=== PATIENT | female | born 1980 | race Caucasian/White ===

== ENCOUNTER 2020-03-27 05:25 | Inpatient (IN) | payer OTHER ==
[2020-03-22 13:07] LABS: BILIRUBIN,URINE NEGATIVE (NEGATIVE); CLARITY,URINE HAZY (CLEAR); COLOR,URINE YELLOW (YELLOW); KETONES,URINE NEGATIVE (NEGATIVE); LEUKOCYTE ESTERASE ,URINE TRACE (NEGATIVE); NITRITE,URINE NEGATIVE (NEGATIVE); PROTEIN,URINE DIPSTICK NEGATIVE (NEGATIVE); URINE UROBILINOGEN 0.2 mg/dL (0.2 - 1)
[2020-03-22 13:11] LABS: BASOPHILS % 0.5 % (0.0-1.0); EOSINOPHILS # (AUTO) 0.3 (0.0-0.4); EOSINOPHILS % 3.8 % (0.0-6.0); HEMATOCRIT 37.7 % (34.2-44.1); HEMOGLOBIN 11.6 g/dL (12.0-16.0); LYMPHOCYTES # (AUTO) 2.8 (1.0-3.2); LYMPHOCYTES % 32.5 % (18.0-39.1); MEAN CORPUSCULAR HEMOGLOBIN 25.8 pg (28-32); MEAN CORPUSCULAR HGB CONC 30.8 g/dL (31-35); MEAN CORPUSCULAR VOLUME 83.8 fL (81-99); MONOCYTES # (AUTO) 0.5 (0.2-0.8); MONOCYTES % 6.2 % (4.4-11.3); NEUTROPHILS # (AUTO) 4.8 (2.1-6.9); NEUTROPHILS % 56.3 % (38.7-80.0); PLATELET COUNT 330 x10e3/uL (140-360); RED CELL DISTRIBUTION WIDTH 14.3 % (11.7-14.4)
[2020-03-22 13:36] LABS: HIV 1&2 AB SCREEN NON-REACTIVE (NONREACTIVE)
--- NOTE | 2020-03-22 13:44 | Diagnostic Imaging Report ---
EXAMINATION: CHEST 2 VIEWS INDICATION: Pre-operative COMPARISON: None FINDINGS: LINES/TUBES:None LUNGS:The lungs are well-inflated. No focal consolidation or pulmonary edema. PLEURA:No pleural effusion or pneumothorax. MEDIASTINUM:The cardiomediastinal silhouette appears normal in size and shape. BONES/SOFT TISSUES:No acute osseous injury. ABDOMEN:No free air under the diaphragm. IMPRESSION: No focal pneumonia or pulmonary edema. Signed by: Nina Juárez MD on 03/22/2020 1:41 PM
[~2020-03-27] VITALS: Ht 165.1 cm; Wt 95.3 kg
[~2020-03-27 05:25] MED LIST: ADDERALL 30 MG30 MG PO; VALIUM10 MG PO
[2020-03-27] MEDS ORDERED: COLACE100 MG PO (06:14)
[2020-03-27] MEDS ORDERED: CEFOXITIN 1GM/0.9% NS 50ML 100 ML IV ONE (06:25)
[2020-03-27] MEDS ORDERED: BUPIVACAINE HCL 0.5% INJ 30 ML VIAL INJ ONE (08:32)
[2020-03-27] MEDS ORDERED: BUPIVACAINE LIPOSOME/PF 266 MG/20 ML IJ ONE (08:32)
[2020-03-27] MEDS ORDERED: HYDROMORPHONE 2MG/ML 2 MG/ML ML ONE (09:03)
[2020-03-27] MEDS ORDERED: ONDANSETRON HCL INJ 2MG/ML 2ML 2 MG/ML VIAL IV PRN (10:30)
[2020-03-27] MEDS ORDERED: KETOROLAC TROMETHAMINE 30 MG/ML VIAL IV PRN (10:30)
[2020-03-27] MEDS ORDERED: NALOXONE HCL INJ 0.4 MG/ML AMP IV PRN (10:30)
[2020-03-27] MEDS: HYDROMORPHONE 0.2MG/ML-SOD CHL 30ML PCA SYRINGE IV PRN (10:40)
[2020-03-27] MEDS ORDERED: DIPHENHYDRAMINE HCL INJ 50 MG/ML VIAL ONE (10:54)
[2020-03-27 11:30] VITALS: BP 98/78
[2020-03-27 13:09] VITALS: BP 107/61
[2020-03-27] MEDS ORDERED: FENTANYL CITRATE/PF 100MCG/2 ML INJ ONE (14:56)
[2020-03-27] MEDS ORDERED: MIDAZOLAM HCL 2 MG/2 ML VIAL ONE (14:56)
--- NOTE | 2020-03-27 16:09 | Operative Report ---
DATE OF PROCEDURE: 03/27/2020 SURGEON: Marquez Mcnamara MD PREOPERATIVE DIAGNOSES: A 39-year-old female, 7, para 4 suffering from: 1. Chronic pelvic pain. 2. Long painful heavy periods leading to anemia. 3. Deep dyspareunia. POSTOPERATIVE DIAGNOSES: A 39-year-old female, 7, para 4 suffering from: 1. Chronic pelvic pain. 2. Long painful heavy periods leading to anemia. 3. Deep dyspareunia. PROCEDURES DONE: 1. EUA. 2. Total abdominal hysterectomy. 3. Bilateral salpingectomy. RECRUITING INTERN: Philippe Chanel MD. ANESTHESIA: General. FINDINGS: At the time of surgery and EUA, cervix looked normal and uterus enlarged, boggy. No adnexal masses felt. On laparotomy, uterus was enlarged about 12-week size and both ovaries looked fine. Both tubes looked unhealthy and claimed several cysts of Morgagni. No pelvic adhesions. Removed the uterus along with the cervix and both fallopian tubes. ESTIMATED BLOOD LOSS: Around 200 mL. URINE: Clear in the Maldonado bag. COMPLICATIONS: No complications. PROCEDURE IN DETAIL: The patient was brought to the operating room, put in the supine position, and general anesthesia was given without any problems. After adequate anesthesia, the patient was examined under anesthesia. Then, prepped and draped in the routine fashion and proceeded with the surgery. Maldonado catheter was in the bladder draining clear urine. Then, made a low-transverse Pfannenstiel skin incision and taken down to the fascia. Fascia opened in a transverse fashion. Recti muscle longitudinally, identified the parietal peritoneum, opened and entered the abdominal cavity without any problems. Then, O'Guzman-O'Kuhn retractor placed in the incision for better exposure and placed the upper blade and the lower blade after packing the bowels up with wet laps. Then, held the fundus of the uterus with the [place] clamp. Both ovaries looked fine. Both tubes looked inflamed and several cysts of Morgagni, and she has a chronic pelvic pain that is why decided to remove both the tubes and keep the ovaries, and remove the uterus. There was a longitudinal ridge from the bladder to the front of the uterus making the bladder dissection difficult. The round ligaments were more atrophic. They identified and clamped close to the uterus and cauterized and cut with the LigaSure. This was done on both sides. Then, the fallopian tubes, the mesosalpinx clamped with the LigaSure, cauterized and cut on both sides. Then, the stump of the tube and the round ligament and the part of the broad ligament clamped at the fundus with the LigaSure close to the uterus and cauterized and cut on both sides. The hemostasis was satisfactory. On either side, applied the Sears clamps to stop the bleeding from the uterus and also to hold the uterus and remove the [place] clamp. Now, the bladder flap, the ridge was cut in the midline and extended on either side up to the stumps of the round ligaments and dissected some more, and pushed down the bladder. The urine was clear. The bladder flap was little vascular, but the hemostasis achieved with the Bovie. Then, after making sure the bladder was down all the way, the part of the broad ligament on either side of the uterus clamped with the LigaSure, cauterized and cut towards the uterus, and then dissected the posterior peritoneum and pushed down and isolated the uterine vessels on either side, clamped them with the LigaSure, cauterized double and then cut. This was done on both sides. The left side, there was a little bit more bleeding while doing the uterine vessels that was clamped with the Joslyn clamp and secured the bleeding and suture ligated using 1-0 Vicryl. The uterine vessels were very large and varicose. Then, cardinal ligaments on either side clamped close to the uterus after making sure the bladder was dissected down. Then, the stumps cut and suture ligated using 1-0 Vicryl, suture tight snug and cut short. Then, after making sure the bladder was down and ureters were far away, the uterine sacral ligaments on either side clamped with curved Joslyn clamp, cut towards the uterus and suture ligated using 1-0 Vicryl, suture tight snug and held along with the hemostat and we were all the way to the angle of the vagina, right angle clamps applied on either side and cut towards the uterus and then, the anterior wall of the vagina, posterior wall of the vagina cut and removed the uterus along with the fallopian tubes and sent for the pathology. The vaginal cuff held with the straight Ana clamps in the midline and then placed the angle stitches with 1 Vicryl and sutured with the transfixation suture, suture tight snug, and held along with the hemostat. Then, the vaginal vault closed with [id number] sutures using 1 Vicryl. At the end of the procedure, we irrigated the pelvis and there was no active bleeding from anywhere. After anchoring the stumps of the uterosacral ligaments into the vaginal vault, all the sutures cut shot and then injected the local anesthetic into the vaginal vault for the postop pain relief, 5 mL. Then again checked for the hemostasis, hemostasis was satisfactory. The Maldonado catheter in the bladder draining clear urine and the ureters looked normal. Then, O'Guzman-O'Kuhn retractor removed and closed the abdominal wall in layers. Parietal peritoneum closed with 2-0 Vicryl with continuous stitches. Fascia closed with 1 Vicryl using 2 sutures starting at the corners and ending in the midline. The subcutaneous tissue approximated with the 2-0 Vicryl with continuous stitches and skin approximated with the subcuticular stitches using 4-0 Vicryl. The remaining 15 mL of the local injected into the muscle and the subfascial and subcutaneous tissue, and also injected Marcaine 0.25% in the subcutaneous tissue and the skin. The blood loss was about 200 mL. Urine clear and the patient moved to the recovery room in a stable condition. Instrument and swab counts are correct. Marquez Mcnamara MD NR/MODL /[id number]
[2020-03-27 16:12] VITALS: BP 91/62
[2020-03-27] MEDS: DIPHENHYDRAMINE HCL 25 MG CAP PO PRN (19:13)
[2020-03-27 20:00] VITALS: BP 107/88
[2020-03-27] MEDS ORDERED: GLYCOPYRROLATE INJ 0.2 MG/ML VIAL ONE (20:08)
[2020-03-27] MEDS ORDERED: ONDANSETRON HCL INJ 2MG/ML 2ML 2 MG/ML VIAL ONE (20:08)
[2020-03-27] MEDS ORDERED: SEVOFLURANE INHAL SOLN 250 ML PEN BTL ONE (20:08)
[2020-03-27] MEDS ORDERED: LIDOCAINE HCL 2% LOCAL INJ 5 ML SDV VIAL INJ ONE (20:08)
[2020-03-27] MEDS ORDERED: PROPOFOL IV EMULSION 10 MG/ML 20 ML VIAL ONE (20:08)
[2020-03-27] MEDS ORDERED: DEXAMETHASONE SOD PHOS INJ 4 MG/ML VIAL ONE (20:08)
[2020-03-27] MEDS ORDERED: KETOROLAC TROMETHAMINE 30 MG/ML VIAL ONE (20:08)
[2020-03-27] MEDS ORDERED: NEOSTIGMINE 1 MG/ML 10ML VIAL ONE (20:08)
[2020-03-27 21:00] VITALS: BP 107/88
--- NOTE | 2020-03-27 21:00 | NUR ---
Report received from Stephanie (RN). Pt alert and oriented x3. Ambulatory in room with standby assist. On MD PHYSICIAN DERMATOLOGIST (Dilaudid) pump per MD order. Maldonado in place draining clear yellow urine. Plan to d/c tomorrow (Post OP day 2). S/P total abdominal hysterectomy today. Abdomon covered with surgical dressing and abd binder. Pt wearing mesh panties and mestrual pads. Call rosado within reach. Will monitor closely.
--- NOTE | 2020-03-27 21:15 | NUR ---
Spoke with Dr. Mcnamara over phone and gave up to date information on current status of patient. MD aware and ordered Colace 100mg PO BID.
[2020-03-27] MEDS: DOCUSATE SODIUM 100 MG CAP PO SCH (23:40)
[2020-03-28] VITALS (8 sets, daily range): BP systolic 92–127; BP diastolic 47–82
[2020-03-28] MEDS: DIPHENHYDRAMINE HCL 25 MG CAP PO PRN (03:46)
[2020-03-28 05:26] LABS: BLOOD UREA NITROGEN 11 mg/dL (7-26); BUN/CREATININE RATIO 13 (6-25); CALCIUM 7.5 mg/dL (8.4-10.2); CARBON DIOXIDE 18 mmol/L (22-29); CHLORIDE 107 mmol/L (98-107); CREATININE, SERUM 0.88 mg/dL (0.57-1.11); EST GLOMERULAR FILTRATION RATE > 60 ML/MIN (60-); GLUCOSE 127 mg/dL (74-118); SODIUM 135 mmol/L (136-145)
[2020-03-28] MEDS: HYDROMORPHONE 0.2MG/ML-SOD CHL 30ML PCA SYRINGE IV PRN (06:13)
--- NOTE | 2020-03-28 06:19 | NUR ---
Spoke to patient that cabral needs to be taken out per Dr. Mcnamara's order (Post OP day 1). Patient refused and stated she was not ready for it to be taken out. Patient wishes to talk to doctor during rounds about keeping cabral for now. Will pass on information to incoming day shift.
--- NOTE | 2020-03-28 08:18 | NUR ---
Spoked to Dr Anders collins orders recvd , Patient resting in bed, Dressing intact, no bleeding, Abdomen is soft , not distended, Maldonado's Catheter is intact with adequate output, JOSHUA Jimenez on, Patient refused SCDs ON
[2020-03-28] MEDS ORDERED: IBUPROFEN 400 MG TAB PO PRN (08:30)
[2020-03-28] MEDS ORDERED: HYDROCODONE/APAP 5MG-325MG TAB PO PRN (08:30)
[2020-03-28 08:48] LABS: BASOPHILS % 0.3 % (0.0-1.0); EOSINOPHILS % 0.2 % (0.0-6.0); LYMPHOCYTES # (AUTO) 2.1 (1.0-3.2); LYMPHOCYTES % 22.8 % (18.0-39.1); MEAN CORPUSCULAR HEMOGLOBIN 26.5 pg (28-32); MEAN CORPUSCULAR HGB CONC 30.4 g/dL (31-35); MEAN CORPUSCULAR VOLUME 87.1 fL (81-99); MONOCYTES % 10.3 % (4.4-11.3); NEUTROPHILS # (AUTO) 6.2 (2.1-6.9); PLATELET COUNT 316 x10e3/uL (140-360); RED BLOOD COUNT 2.64 x10e6/uL (3.6-5.1); RED CELL DISTRIBUTION WIDTH 14.7 % (11.7-14.4)
[2020-03-28] MEDS: DOCUSATE SODIUM 100 MG CAP PO SCH ×2 (08:58→17:05)
[2020-03-28] MEDS ORDERED: DOCUSATE SODIUM 100 MG CAP PO SCH (09:00)
[2020-03-28 09:02] LABS: ALANINE AMINOTRANSFERASE 29 IU/L (0-55); ALBUMIN 2.9 g/dL (3.5-5.0); ALBUMIN/GLOBULIN RATIO 1.1 (0.8-2.0); ALKALINE PHOSPHATASE 48 IU/L (40-150); BLOOD UREA NITROGEN 11 mg/dL (7-26); BUN/CREATININE RATIO 12 (6-25); CALCIUM 7.7 mg/dL (8.4-10.2); CARBON DIOXIDE 17 mmol/L (22-29); CHLORIDE 106 mmol/L (98-107); CREATININE, SERUM 0.91 mg/dL (0.57-1.11); EST GLOMERULAR FILTRATION RATE > 60 ML/MIN (60-); GLUCOSE 122 mg/dL (74-118); SODIUM 135 mmol/L (136-145)
--- NOTE | 2020-03-28 09:10 | NUR ---
Discontinued PICKER FEEDER pump as per Order from Dr Mcnamara, Keke Maldonado's Catheter, 1100cc urine output
--- NOTE | 2020-03-28 09:14 | NUR ---
Paged Dr Mcnamara regarding LABS.
--- NOTE | 2020-03-28 11:45 | NUR ---
Assisted patient to restroom, NO C/O Dizziness, no bleeding
--- NOTE | 2020-03-28 11:46 | NUR ---
Patient urinated this time, not in any distress, she said she feels better now
--- NOTE | 2020-03-28 14:18 | NUR ---
Dr Mcnamara had rounds, changed dressing, new written orders recvd, Patient up in bed, call light in reach
--- NOTE | 2020-03-28 19:15 | NUR ---
Patient visited in room during nursing rounds. Pt alert and oriented x3. Ambulatory in room with standby assist. S/P total abdominal hysterectomy on 03/27/20. Abdomon covered with surgical dressing and abd binder. Pt wearing mesh panties and mestrual pads. Call rosado within reach. Will monitor closely.
[2020-03-28] MEDS: IRON-VITAMIN-MINERAL CAPSULE PO SCH (21:21)
--- NOTE | 2020-03-28 22:48 | NUR ---
Called Dr. Mcnamara and informed pt having low grade fever (T = 100 F). aware and ordered STAT CBC, Cefoxin 2gm IV Q6hr, and Tylenol 650mg PO Q6hr prn. Dr Mcnamara requested to be called with CBC results.
--- NOTE | 2020-03-28 22:53 | NUR ---
Explained to patient Dr. Mcnamara's orders including blood draw (i.e. STAT CBC). Patient refused to be drawn tonight and voiced out that it does not make sense to draw labs tonight and be drawn labs tomorrow morning. Will call Dr. Mcnamara about patient's decision.
--- NOTE | 2020-03-28 22:57 | NUR ---
Called Dr. Mcnamara and explained that patient was refusing to be drawn for CBC at this time. aware and cancelled STAT CBC order.
[2020-03-28] MEDS: ACETAMINOPHEN 325 MG TAB PO PRN (23:08)
[2020-03-28] MEDS ORDERED: SODIUM CHLORIDE 0.9% 250ML 250 ML ONE (23:16)
[2020-03-28] MEDS: CEFOXITIN 1GM/0.9% NS 50ML 100 ML IV SCH (23:23)
[2020-03-29] VITALS (9 sets, daily range): BP systolic 87–114; BP diastolic 60–73
[2020-03-29] MEDS ORDERED: CEFOXITIN SOD 1 GM VIAL ONE (04:54)
[2020-03-29] MEDS ORDERED: SODIUM CHLORIDE 0.9% 100 ML ONE ×2 (04:54→10:20)
[2020-03-29] MEDS: CEFOXITIN 1GM/0.9% NS 50ML 100 ML IV SCH ×4 (05:30→23:37)
[2020-03-29] MEDS: IRON-VITAMIN-MINERAL CAPSULE PO SCH ×3 (05:30→22:09)
[2020-03-29 05:50] LABS: BASOPHILS % 0.3 % (0.0-1.0); EOSINOPHILS # (AUTO) 0.2 (0.0-0.4); EOSINOPHILS % 2.6 % (0.0-6.0); LYMPHOCYTES # (AUTO) 2.6 (1.0-3.2); LYMPHOCYTES % 39.4 % (18.0-39.1); MEAN CORPUSCULAR HGB CONC 31.3 g/dL (31-35); MEAN CORPUSCULAR VOLUME 86.2 fL (81-99); MONOCYTES # (AUTO) 0.5 (0.2-0.8); NEUTROPHILS # (AUTO) 3.2 (2.1-6.9); NEUTROPHILS % 49.1 % (38.7-80.0); PLATELET COUNT 215 x10e3/uL (140-360); RED BLOOD COUNT 1.89 x10e6/uL (3.6-5.1); RED CELL DISTRIBUTION WIDTH 14.8 % (11.7-14.4)
[2020-03-29 06:18] LABS: HEMATOCRIT 16.3 % (34.2-44.1); HEMOGLOBIN 5.1 g/dL (12.0-16.0)
--- NOTE | 2020-03-29 06:29 | NUR ---
Called Dr. Mcnamara to inform Hgb/Hct of 5.1 and 16.3. aware and ordered stat US of abd and pelvis and type and screen and given to units of PRBC.
[2020-03-29] MEDS ORDERED: SODIUM CHLORIDE 0.9% 250ML 250 ML IV ONE (06:55)
[2020-03-29] MEDS: DOCUSATE SODIUM 100 MG CAP PO SCH ×2 (08:05→16:42)
[2020-03-29] MEDS ORDERED: LACTATED RINGER'S 1,000 ML ONE (09:37)
--- NOTE | 2020-03-29 09:52 | Diagnostic Imaging Report ---
HISTORY : Recent hysterectomy. Dropping hemoglobin. Concern for hematoma. COMPARISON : None Comment: Ultrasound examination of the pelvis was performed transabdominally. The uterus is surgically absent. In the surgical bed there is a hypoechoic heterogeneous collection measuring up to 11.6 cm without significant internal vascularity. No other fluid collection is identified. IMPRESSION : Heterogeneous alone 0.6 cm hypoechoic collection in the surgical bed is concerning for possible hematoma versus fluid collection. Recommend follow-up CT. Signed by: Lalo Rogel MD on 03/29/2020 9:48 AM
[2020-03-29] MEDS ORDERED: IOPAMIDOL 370 MG/ML 200 ML INFUS..BTL INJ ONE (10:21)
[2020-03-29] MEDS: HYDROCODONE/APAP 10MG-325MG TAB PO PRN ×2 (11:00→22:31)
--- NOTE | 2020-03-29 11:02 | Diagnostic Imaging Report ---
Abdomen and Pelvis CTA WITHOUT AND WITH IV CONTRAST. INDICATION: Concern for postoperative hematoma. Evaluate for active extravasation. COMPARISON: Ultrasound dated the same day. TECHNIQUE: The abdomen and pelvis were scanned utilizing a multidetector helical scanner from the lung base to the pubic symphysis before and after administration of IV contrast. Coronal and sagittal reformations were obtained. 3D post-processing of the images was performed, and the post-processed images were used in interpretation. CTA protocol was performed. IV CONTRAST: 100mL of Isovue 370 ORAL CONTRAST: Water RADIATION DOSE: Total DLP: 2433 mGy*cm FINDINGS: VESSELS: No active extravasation is identified. Hyperdense inferior midline rectus sheath hematoma is noted. There is a small amount of hematoma extending into the anterior pelvis. No active extravasation or pulling of contrast and delayed phases visualized in this region. The hematoma measures 12.0 x 5.3 x 1.8 cm. Aorta, celiac, superior mesenteric, single bilateral renal and inferior mesenteric arteries are unremarkable. Common, internal and external iliac arteries are unremarkable. Common femoral arteries and partially visualized superficial femoral and profunda arteries are unremarkable. Hepatic and portal veins are patent. NON-VASCULAR: LOWER THORAX: Basilar atelectasis is noted bilaterally. HEPATOBILIARY: On noncontrast imaging the liver is diffusely hypoattenuating. No focal hepatic lesions. No biliary ductal dilatation. The gallbladder appears unremarkable. SPLEEN: No splenomegaly. PANCREAS: No focal masses or ductal dilatation. ADRENALS: No adrenal nodules. KIDNEYS/URETERS: No hydronephrosis, stones, or solid mass lesions. PELVIC ORGANS/BLADDER: Urinary bladder is moderately distended with a few foci of intraluminal air, nonspecific. Uterus and ovaries are surgically absent. No hypoattenuating fluid collection is identified in the surgical bed. PERITONEUM / RETROPERITONEUM: Negative for pneumoperitoneum. Negative for ascites. LYMPH NODES: No lymphadenopathy. GI TRACT: Bowel loops are suboptimally evaluated due to lack of IV contrast distention. Negative for bowel obstruction. No surrounding inflammatory changes are identified. BONES AND SOFT TISSUES: Negative for acute osseous abnormality. Transverse lower pelvic superficial incision is noted with mild overlying induration. IMPRESSION: 1. CT angiogram of the abdomen and pelvis is negative for active extravasation. A large hematoma is identified in the midline lower rectus sheath measuring 12.0 x 5.3 x 11.7 cm. Small amount of hemorrhage is also identified in the inferior pelvis. 2. Post surgical changes from hysterectomy with transverse lower pelvic incision. 3. Hepatic steatosis. The above findings were discussed with Dr. Mcnamara via telephone on 03/29/2020 9:00AM, who responded indicating that the communication was understood. Signed by: Lalo Rogel MD on 03/29/2020 10:59 AM
[2020-03-29] MEDS: ACETAMINOPHEN 325 MG TAB PO PRN (14:08)
[2020-03-29 18:04] LABS: BASOPHILS % 0.5 % (0.0-1.0); EOSINOPHILS # (AUTO) 0.2 (0.0-0.4); EOSINOPHILS % 3.1 % (0.0-6.0); LYMPHOCYTES # (AUTO) 2.3 (1.0-3.2); LYMPHOCYTES % 29.7 % (18.0-39.1); MEAN CORPUSCULAR HEMOGLOBIN 26.8 pg (28-32); MEAN CORPUSCULAR HGB CONC 31.1 g/dL (31-35); MEAN CORPUSCULAR VOLUME 86.2 fL (81-99); MONOCYTES # (AUTO) 0.5 (0.2-0.8); MONOCYTES % 6.9 % (4.4-11.3); NEUTROPHILS # (AUTO) 4.5 (2.1-6.9); NEUTROPHILS % 58.3 % (38.7-80.0); PLATELET COUNT 234 x10e3/uL (140-360); RED BLOOD COUNT 2.54 x10e6/uL (3.6-5.1); RED CELL DISTRIBUTION WIDTH 14.6 % (11.7-14.4)
[2020-03-29 18:06] LABS: HEMOGLOBIN 6.8 g/dL (12.0-16.0)
[2020-03-29 18:07] LABS: HEMATOCRIT 21.9 % (34.2-44.1)
[2020-03-29] MEDS ORDERED: SODIUM CHLORIDE 0.9% 250ML 250 ML ONE (18:22)
--- NOTE | 2020-03-29 18:40 | NUR ---
Called Dr. Mcnamara with latest hemoglobin of 6.8 and hematocrit of 21.9 and she ordered the 1 blood unit on hold to be given now. Patient was informed. Dr. Mcnamara also requested that patient put on the ice packs to her abdomen to help with the internal hematoma. Patient continually refuses the ice packs. Patient had blood start at 1830. Dr. Mcnamara ordered Lasix, however patient's vitals are 96/[address] Mcnamara was called back and she requested it be held. BP check at 1900 and call her.
[2020-03-29] MEDS ORDERED: FUROSEMIDE INJ 10 MG/ML 2 ML VIAL IV SCH (18:45)
--- NOTE | 2020-03-29 19:25 | NUR ---
RECEIVED BEDSIDE SHIFT REPORT FROM PREVIOUS NURSE. CALL LIGHT WITHIN REACH. PATIENT IN NO PAIN OR DISTRESS. CALL LIGHT WITHIN REACH. BLOOD IS RUNNING AT 125 CC.
--- NOTE | 2020-03-29 19:45 | NUR ---
CALLED DR. DE LA FUENTE ABOUT THE PATIENT'S VITAL SIGNS. SHE WAS TOLD THE VITAL SIGNS, LUNGS ARE CLEAR, AND PATIENT IN NO PAIN. SHE SAID AFTER THE UNIT IS DONE WE DO NOT HAVE TO DO ANYTHING TILL [address] DE LA FUENTE SAID IF THERE IS ANY PROBLEMS TO GIVE HER A CALL.
[2020-03-30] VITALS: BP 110/71
[2020-03-30 04:00] VITALS: BP 100/61
[2020-03-30 05:15] LABS: BASOPHILS % 0.4 % (0.0-1.0); EOSINOPHILS # (AUTO) 0.4 (0.0-0.4); EOSINOPHILS % 4.2 % (0.0-6.0); HEMOGLOBIN 8.5 g/dL (12.0-16.0); LYMPHOCYTES % 33.2 % (18.0-39.1); MEAN CORPUSCULAR HEMOGLOBIN 27.2 pg (28-32); MEAN CORPUSCULAR HGB CONC 31.5 g/dL (31-35); MEAN CORPUSCULAR VOLUME 86.5 fL (81-99); MONOCYTES # (AUTO) 0.6 (0.2-0.8); MONOCYTES % 6.4 % (4.4-11.3); NEUTROPHILS # (AUTO) 4.9 (2.1-6.9); NEUTROPHILS % 54.1 % (38.7-80.0); PLATELET COUNT 232 x10e3/uL (140-360); RED BLOOD COUNT 3.12 x10e6/uL (3.6-5.1)
[2020-03-30 05:36] LABS: ALANINE AMINOTRANSFERASE 21 IU/L (0-55); ALBUMIN 2.9 g/dL (3.5-5.0); ALBUMIN/GLOBULIN RATIO 0.9 (0.8-2.0); ALKALINE PHOSPHATASE 45 IU/L (40-150); ANION GAP 13.9 mmol/L (8-16); BLOOD UREA NITROGEN 6 mg/dL (7-26); BUN/CREATININE RATIO 8 (6-25); CALCIUM 8.1 mg/dL (8.4-10.2); CARBON DIOXIDE 20 mmol/L (22-29); CHLORIDE 111 mmol/L (98-107); CREATININE, SERUM 0.73 mg/dL (0.57-1.11); EST GLOMERULAR FILTRATION RATE > 60 ML/MIN (60-); GLUCOSE 88 mg/dL (74-118); POTASSIUM 3.9 mmol/L (3.5-5.1); SODIUM 141 mmol/L (136-145)
[2020-03-30] MEDS: IRON-VITAMIN-MINERAL CAPSULE PO SCH ×2 (06:10→12:40)
[2020-03-30] MEDS: HYDROCODONE/APAP 10MG-325MG TAB PO PRN (06:10)
[2020-03-30] MEDS: CEFOXITIN 1GM/0.9% NS 50ML 100 ML IV SCH ×2 (06:10→12:40)
--- NOTE | 2020-03-30 07:10 | NUR ---
GAVE BEDSIDE SHIFT REPORT TO ONCOMING NURSE. CALL LIGHT WITHIN REACH. PATIENT IN BED
[2020-03-30] MEDS: DOCUSATE SODIUM 100 MG CAP PO SCH (07:49)
[2020-03-30 07:59] VITALS: BP 105/64
[2020-03-30 08:03] VITALS: BP 105/64
[2020-03-30 13:06] VITALS: BP 98/67
[2020-03-30] MEDS ORDERED: TYLENOL # 31 EA PO (14:08)
[2020-03-30] MEDS ORDERED: HEMOCYTE PLUS1 EACH PO (14:08)
[2020-03-30] MEDS ORDERED: COLACE100 MG PO (14:08)
--- NOTE | 2020-03-30 14:29 | NUR ---
Patient received discharge order from Dr. Mcnamara once patient H&H came back within safe limits. Patient was given discharge prescriptions, discussed in length with doctor and nurse about discharge instructions. Patient IV removed at 1410 and covered with C/D/I dressing. Patient verbalized understanding. Patient wheeled to car at 1420 and had no issues or complaints.
--- NOTE | 2020-03-30 18:29 | Discharge Summary ---
PREOPERATIVE DIAGNOSES: 1. A 39-year-old female, 7, para 4 with chronic pelvic pain. 2. Deep dyspareunia. 3. Long heavy painful periods leading to anemia. Tried medical treatment, not helping and the patient is not interested in the fertility, wants to have the definitive treatment and came for the total abdominal hysterectomy and possible bilateral salpingo-oophorectomy. The patient had the surgery on March 27, 2020. She had EUA, exam under anesthesia and total abdominal hysterectomy plus bilateral salpingectomy. Both the ovaries were OIL REFINERY PROCESS TECHNICIAN: Philippe Chanel MD and would refer to my op note for the surgical details. ESTIMATED BLOOD LOSS: Around 200 to 300 mL. URINE: Clear. COMPLICATIONS: No complications. The patient was taken to the recovery room, the Maldonado catheter was draining clear urine, urine amount was adequate and pain control was fairly good. The patient is getting the WATER REUSE PROGRAM MANAGER with Dilaudid and also had Exparel injection into the abdominal wall. No problems in the recovery room. She was moved to the floor in stable condition. The day of the surgery, the patient did not have any problem, the urine output was adequate. Vital signs was stable and pain control was adequate. On the first postop day in the morning, the Maldonado was discontinued, then she is started voiding without any trouble, increase the activity and the diet. She was ambulating without any problem. No dizziness, no shortness of breath. Clinically, she was feeling great. The bowel sounds were good and by noon she was started passing the flatus and increase the diet as tolerated. Her postop first day, the hemoglobin, it was 7.0. The platelet count was 316, even though the hemoglobin was low, the patient clinically feeling good and looked good and ambulating without any symptoms. Tolerating the regular diet, voiding without any problem and the pain control was fairly good and thought probably under estimated the blood loss during the surgery and started on p.o. iron. Discussed about the options of blood transfusion. At this time, the patient is not interested in getting any blood transfusion and wanted to get iron infusion if necessary because she had the iron infusion in the past for anemia. The second postop day when repeated the CBC, the hemoglobin dropped to 5.1, the platelet count was adequate. Still clinically she was feeling and doing good. She was ambulating, moving without any trouble. No symptoms like dizziness or shortness of breath. PHYSICAL EXAMINATION: VITAL SIGNS: She was afebrile. Vital signs are stable. Heart rate was around 92 to 95 per minute and respirations 18 per minute. LUNGS: Clear to auscultation. ABDOMEN: Soft. No distension. Good bowel sounds. Incision was intact, dry healing. EXTREMITIES: Not tender. : Perineum was dry. No signs or symptoms of external bleeding. Hemoglobin significantly dropped, therefore started the evaluation for possible hematoma and the patient had pelvic ultrasound that showed possible hematoma in the lower part of the abdomen and pelvis. Therefore, immediately she had CTA without and with IV contrast and that showed no active extravasation is identified, hyperdense inferior midline rectus sheath hematoma is noted. There is small amount of the hematoma extending into the anterior pelvis. No active extravasation or pulling of the contrast and delayed phases visualized in this group. Because there was no arterial bleeding, embolization was not necessary, possibly it was venous, the hematoma secondary to the oozing and vital signs were stable. Clinically, she was feeling good. Therefore, explained all this to the patient and recommended the blood transfusion and with her consent, she received 3 units of packed cells, red blood cells. After receiving the 2 units, the hemoglobin came up to 6.8 and in the morning of third postoperative that is March 2020, the hemoglobin increased to 8.5 g and hematocrit to 27.0 and platelet count is 232. Always the platelet count was good and the patient was feeling great and wants to go home. Therefore, discharged to home on March 2020. Postop, the hemoglobin decreased and the patient had midline rectus sheath hematoma, but clinically she was doing good, not symptomatic and there was no arterial bleeding. No extravasation seen on CTA. Therefore, planned for the expectant line of the management. With that she was stable and hemoglobin was increasing suggestive of not any more active bleeding. Therefore, the patient discharged home on third postop day that is March 2020. Before the discharge on examination, the patient is comfortable at rest and the pain control was great, ambulating very well. No symptoms like dizziness or shortness of the breath. Passing flatus, tolerating the regular diet, voiding without any trouble. GENERAL: On examination, she was comfortable at rest, afebrile. VITAL SIGNS: Stable. HEART: Regular rate and rhythm. LUNGS: Clear. ABDOMEN: Soft. No distension. Good bowel sounds. The abdominal incision was intact. Pfannenstiel incision intact dry healing. The incision looks great. No bleeding. Perineum dry. EXTREMITIES: Not tenderness. The patient discharged home. DISCHARGE CONDITION: Stable. DISPOSITION: Home. ACTIVITY: Ad-liz. No strenuous work. Complete pelvic rest. Diet, regular as tolerated. Small frequent meals. MEDICATIONS: Tylenol 3 one tablet p.o. q.4 to 6 hours p.r.n. pain given the prescription for 30 tablets. Advised not to take any Advil or Ibuprofen, iron tablets, Hemocyte-F one tablet q.8 hours, gave prescription for 90 tablets, stool softener as needed one tablet p.o. b.i.d. Follow up in my office in 1 to 2 weeks and explained all the discharge instructions given and answered all her questions and increased pain nausea, vomiting, fever or dizziness, shortness of breath or any other problems, advised to call me or come into the emergency room. MD VALERIA Wu/EVIE /[id number]
== END 2020-03-30 14:20 | disposition home or self-care (01) | DRG 743 ==
LOC: OR 05:25 → OBSVTOIN 10:23 → PACU V 10:23 → MED/SURG 11:14
PROVIDERS: ADMIT Specialist; ATTEND Specialist
PROC: 0UT70ZZ Resection of Bilateral Fallopian Tubes, Open Approach (ICD-10-PCS; 2020-03-27)
PROC: 0UT90ZZ Resection of Uterus, Open Approach (ICD-10-PCS; principal; 2020-03-27 07:30)
PROC: 30233N1 Transfusion of Nonautologous Red Blood Cells into Peripheral Vein, Percutaneous Approach (ICD-10-PCS; 2020-03-29)
DX: N92.0 Excessive and frequent menstruation with regular cycle (principal); D64.9 Anemia, unspecified; N92.4 Excessive bleeding in the premenopausal period; N94.12 Deep dyspareunia; Z11.59 Encounter for screening for other viral diseases
CPT/HCPCS: 36415; 71046; 74174; 76856; 80048; 80053; 81003; 84702; 85025; 86850; 86900; 86920; 87086; 87390; 88307; 93005; G0433; G0435; J0694; J1100; J1200; J1885; J1940; J2001; J2250; J2405; J2710; J3010; J7050; J7121; P9016; Q9967; U0002